=== PATIENT | female | born 1970 ===

== ENCOUNTER → 2025-01-09 03:00 | Outpatient (CLI) | payer BC, SELFPAY ==
--- NOTE | 2025-01-09 10:07 | DI.RAD_ITS ---
Exam(s) XR CERVICAL SPINE COMP 4-5V EXAM: XR CERVICAL SPINE COMP 4-5V CLINICAL HISTORY: CERVICALGIA,M54.2. TECHNIQUE: 2D digital imaging was performed. COMPARISON: No exams were available for comparison FINDINGS: Five views No evidence of fracture, listhesis, nor offset of the spinal laminar line. There is chronic-type disc space narrowing at C5-6 and C6-7 levels. Bilateral Luschka joint osteophytes at C6-7 level. Facet joints appear unremarkable. Straightening of the normal curvature. There are no cervical ribs. Bone density normal. No osseous lesions. IMPRESSION: Chronic-type disc space narrowing at C-6 and C6-7 levels. DATA REPOSITORY: RADIATION DOSE DELIVERED:
== END ==
PROVIDERS: PCP Nurse Practitioner Family; Visit Provider Nurse Practitioner Family
DX: M54.2 Cervicalgia (principal); M50.323 Other cervical disc degeneration at C6-C7 level
CPT/HCPCS: 72050